=== PATIENT | female | born 1990 | race African-American/Black ===

== ENCOUNTER 2017-03-06 22:30 | Emergency (ER) | payer SELFPAY ==
[~2017-03-06] VITALS: Ht 157.5 cm; Wt 61.2 kg
[~2017-03-06 22:30] MED LIST: CLIN300C8 PO; HYDR-971 PO
[2017-03-06 22:35] VITALS: BP 157/104
[2017-03-06] MEDS ORDERED: CHLO15MO2 PO (22:57)
[2017-03-06] MEDS ORDERED: IBUP-1060 PO (22:57)
--- NOTE | 2017-03-06 22:57 | PHYS DOC ---
Past Medical History Past Medical History: Abscess Past Surgical History: No Surgical History Additional Information: 0.5 PPD Alcohol Use: None Drug Use: None Adult General Chief Complaint Chief Complaint: DENTAL PROBLEM HPI HPI Patient is a 26 year old female with history of dental abscess of presents today complaining of moderate upper gum dental pain that began 3 days ago. Patient states she has been seen at [facility] last week for the dental abscess area she states it was already drained. She states she was put on Cipro and hydrocodone. She presents today crying inconsolably stating she has severe pain and her pain medicine is not working. She states she cannot follow-up with a dentist because of financial issues. She states she got an appointment with an oral surgeon sometime next month but it's too far away to wait. Patient denies any fever or trismus. Review of Systems Review of Systems Constitutional: Denies fever or chills [] Eyes: Denies change in visual acuity, redness, or eye pain [] HENT: Reports upper gum dental pain Musculoskeletal: Denies back pain or joint pain [] Integument: Denies rash or skin lesions [] Neurologic: Denies headache, focal weakness or sensory changes [] All other systems were reviewed and found to be within normal limits, except as documented in this note. Current Medications Current Medications Current Medications Medications (Trade) Dose Ordered Sig/Oliver Start Time Stop Time Status Last Admin Dose Admin Diazepam (Valium) 5 mg 1X ONCE 03/06/17 23:30 12 23:31 Ketorolac Tromethamine (Toradol Im) 60 mg 1X ONCE 03/06/17 23:30 03/06/17 23:31 Morphine Sulfate 5 mg 1X ONCE 03/06/17 23:30 03/06/17 23:31 Allergies Allergies Allergies Coded Allergies Type Severity Reaction Last Updated Verified No Known Drug Allergies 05/10/13 No Physical Exam Physical Exam Constitutional: Well developed, well nourished, no acute distress, non-toxic appearance. [] HENT: Normocephalic, atraumatic, bilateral external ears normal, oropharynx moist, no oral exudates, nose normal. [] Missing molars on the left upper gum. Dental decay noted on tooth #12 which is broken. No gum erythema noted. No abscess noted. Skin: Warm, dry, no erythema, no rash. [] Back: No tenderness, no CVA tenderness. [] Extremities: No tenderness, no cyanosis, no clubbing, ROM intact, no edema. [] Neurologic: Alert and oriented X 3, normal motor function, normal sensory function, no focal deficits noted. [] Psychologic: Affect normal, judgement normal, mood normal. [] Current Patient Data Vital Signs Vital Signs Date Time Temp Pulse Resp B/P (MAP) Pulse Ox O2 Delivery O2 Flow Rate FiO2 03/06/17 22:35 98.1 101 30 100 Room Air 98.1 EKG EKG [] Radiology/Procedures Radiology/Procedures [] Course & Med Decision Making Course & Med Decision Making Pertinent Labs and Imaging studies reviewed. (See chart for details) Patient is in the ED with ongoing dental pain for 3 days. She was seen twice last week at [facility] where they drained the abscess and put on Cipro and hydrocodone. She states it's not helping, she is in the ED crying inconsolably. She has an appointment with the dentist in March 2017. She was put on naproxen and Peridex and instructed to continue taking the rest of her antibiotics until completed and hydrocodone. We gave her a dental list for f/u. Lo Disclaimer Lo Disclaimer This electronic medical record was generated, in whole or in part, using a voice recognition dictation system. Departure Departure Impression: Primary Impression: Dentalgia Additional Impression: Infected dental carries Disposition: 01 HOME, SELF-CARE Condition: STABLE Referrals: NON,STAFF (PCP) follow up with a dentist as soon as possible Patient Instructions: Dental Pain Additional Instructions: You were seen for dental pain. You are already on antibiotics and pain medications. Continue taking them until completed. Take Ibuprofen prescribed as ordered. Please consider looking for a dentist and follow up as soon as possible. Scripts Chlorhexidine Gluconate (PERIDEX) 15 Ml Mouthwash 15 ML PO BID, #946 ML Prov: ANDREZ SLOAN APRN 03/06/17 Ibuprofen (IBUPROFEN) 800 Mg Tablet 800 MG PO PRN Q6HRS Y for INFLAMMATION, #20 TAB Prov: ANDREZ SLOAN APRN 03/06/17 Problem Qualifiers ANDREZ SLOAN APRN Mar 06, 2017 22:57
[2017-03-06] MEDS ORDERED: KETOROLAC 60 MG/2 ML INJ. IM ONE (23:30)
[2017-03-06] MEDS ORDERED: diazePAM 5 MG TABLET PO ONE (23:30)
[2017-03-06] MEDS ORDERED: MORPHINE SULFATE 10 MG/ML VIAL. IM ONE (23:30)
== END 2017-03-06 23:10 | disposition home or self-care (01) ==
LOC: ER 22:30
DX: K04.7 Periapical abscess without sinus (principal); K02.9 Dental caries, unspecified; F17.200 Nicotine dependence, unspecified, uncomplicated
CPT/HCPCS: 96372; 99284; J1885; J2270

== ENCOUNTER 2021-06-12 02:27 | Emergency (ER) | payer SELFPAY ==
[~2021-06-12] VITALS: Ht 157.5 cm; Wt 61.2 kg
[~2021-06-12 02:27] MED LIST changes: +CHLO15MO2 PO; +CLIN-94 PO; -CLIN300C8 PO; +HYDR-3164 PO; -HYDR-971 PO; +IBUP-1060 PO
[2021-06-12 02:40] VITALS: BP 154/91
[2021-06-12] MEDS ORDERED: LIDOCAINE/EPI/TETRACAINE TOPICAL GEL 3 ML. TP ONE ×2 (03:02→03:15)
[2021-06-12] MEDS ORDERED: oxyCODONE/APAP 5/325 1 TAB TABLET PO ONE (03:15)
[2021-06-12] MEDS ORDERED: CIPR7.5D EACH EAR (03:48)
--- NOTE | 2021-06-12 03:48 | ED.ADGEN ---
Past Medical History Past Medical History: Abscess Past Surgical History: No Surgical History Smoking Status: Never Smoker Alcohol Use: None Drug Use: None General Adult EDM: Chief Complaint: ABSCESS HPI: HPI: Patient is 31-year-old female who presents to the emergency room with an abscess in her left lower scalp. She states she was seen at [facility] earlier today and they placed her on antibiotics. She states that she has throbbing pain in the area that is radiating from there. She is also had some drainage from her ear. She states it has not been draining and feels like there is a great deal of pressure. Denies any fever. Denies any headache or neurologic complaints. Review of Systems: Review of Systems: Complete ROS is negative unless otherwise documented in HPI Current Medications: Current Medications Medications (Trade) Dose Ordered Sig/Oliver Start Time Stop Time Status Last Admin Dose Admin Oxycodone/ Acetaminophen (Percocet 5/325) 1 tab 1X ONCE 06/12/21 03:15 06/12/21 03:16 DC 06/12/21 03:09 1 TAB Tetracaine/ Epinephrine/ Lidocaine (Let (Yvlo-Saszxhb-Fuvnj) Gel) 3 ml STK-MED ONCE 06/12/21 03:02 06/12/21 03:03 DC Allergies: Allergies: Allergies Coded Allergies Type Severity Reaction Last Updated Verified tramadol Allergy Unknown 06/12/21 Yes Physical Exam: PE: General: Awake, alert, NAD. Well Nourished, well hydrated. Cooperative HEENT: Atraumatic, EOMI, PERRL, airway patent, moist oral mucosa Neck: Supple, trachea midline Respiratory: CTA bilaterally, normal effort, no wheezing/crackles CV: RRR, no murmur, cap refill <2 GI: Soft, nondistended, nontender, no masses MSK: No obvious deformities Skin: Warm, dry, intact. L lower scalp: 1x2 cm raised abscess with erythema and warmth. Indurated with minimal fluctuance. No extensive cellulitis. Neuro: A&O x3, speech NL, sensory and motor grossly intact, no focal deficits Psych: Normal affect, normal mood, not suicidal or homicidal Current Patient Data: Vital Signs: Vital Signs Date Time Temp Pulse Resp B/P (MAP) Pulse Ox O2 Delivery O2 Flow Rate FiO2 06/12/21 03:09 20 06/12/21 02:40 98.3 90 154/91 (112) 99 Room Air 98.3 EKG: EKG: [] Heart Score: C/O Chest Pain: N/A Risk Factors: Risk Factors: DM, Current or recent (<one month) smoker, HTN, HLP, family history of CAD, obesity. Risk Scores: Score 0 - 3: 2.5% MACE over next 6 weeks - Discharge Home Score 4 - 6: 20.3% MACE over next 6 weeks - Admit for Clinical Observation Score 7 - 10: 72.7% MACE over next 6 weeks - Early Invasive Strategies Radiology/Procedures: Radiology/Procedures: [] Course & Med Decision Making: Course & Med Decision Making Pertinent Labs and Imaging studies reviewed. (See chart for details) Patient is a 31-year-old female who presents to the emergency room complaining of an abscess to her scalp. Abscess is small with induration and a small amount of fluctuance. Abscess was opened and had bloody pus drainage. Patient had significant improvement in pain. Patient appears to have a superficial infection this does not appear to be a deep infection. She is very well- appearing. Vitals are normal. Patient's test results and vitals while in the ED were fully reviewed and discussed with the patient. Patient is stable and at this time does not need admission to the hospital. We have discussed strict return precautions and the importance of following up with their Primary Care Physician. Patient stated understanding and was given an opportunity to ask any questions. Patient is in agreement with plan. [place] Disclaimer: Lo Disclaimer: This electronic medical record was generated, in whole or in part, using a voice recognition dictation system. Departure Departure Impression: Primary Impression: Abscess Disposition: HOME / SELF CARE / HOMELESS Condition: STABLE Referrals: NO PCP (PCP) Patient Instructions: Abscess, Care After Scripts Ciprofloxacin Hcl/Dexameth (CIPRODEX OTIC SUSPENSION) 7.5 Ml Drops.susp 4 DROP EACH EAR BID, #1 BOTTLE Prov: MAVERICK BENITEZ MD 06/12/21 MAVERICK BENITEZ MD Jun 12, 2021 03:48
== END 2021-06-12 03:57 | disposition home or self-care (01) ==
LOC: ER 02:27
DX: L02.811 Cutaneous abscess of head [any part, except face] (principal); Z88.6 Allergy status to analgesic agent
CPT/HCPCS: 99283